=== PATIENT | female | born 1975 | race Caucasian/White ===

== ENCOUNTER → 2018-09-24 | Outpatient (REF) | payer OTHER ==
[2018-09-24 17:08] LABS: ALBUMIN 3.8 GM/DL (3.2-5.2); ALT/SGPT 20 U/L (12-78); BILIRUBIN,TOTAL 0.4 MG/DL (0.2-1.0); BLOOD UREA NITROGEN 10 MG/DL (7-18); CALCIUM LEVEL 8.8 MG/DL (8.5-10.1); CARBON DIOXIDE LEVEL 26 MEQ/L (21-32); CHLORIDE LEVEL 108 MEQ/L (98-107); CHOLESTEROL LEVEL 194 MG/DL (<200); CHOLESTEROL RISK RATIO 2.365 (<5); CREATININE FOR GFR 0.72 MG/DL (0.55-1.30); GLOMERULAR FILTRATION RATE > 60.0 (>58); GLUCOSE, FASTING 91 MG/DL (70-100); HDL CHOLESTEROL 82 MG/DL (>40); LDL CHOLESTEROL 102 MG/DL (<100); NON-HDL-C 112 MG/DL; POTASSIUM SERUM 4.2 MEQ/L (3.5-5.1); SODIUM LEVEL 140 MEQ/L (136-145); TOTAL PROTEIN 6.8 GM/DL (6.4-8.2); TRIGLYCERIDES LEVEL 51 MG/DL (<150)
[2018-09-24 17:14] LABS: HEMOGLOBIN 13.7 g/dl (12.0-15.5); MEAN CORPUSCULAR HEMOGLOBIN 28.5 pg (27.0-33.0); MEAN CORPUSCULAR HGB CONC 32.6 g/dl (32.0-36.5); MEAN CORPUSCULAR VOLUME 87.5 fl (80.0-96.0); PLATELET COUNT, AUTOMATED 250 10^3/uL (150-450); WHITE BLOOD COUNT 6.8 10^3/uL (4.0-10.0)
[2018-09-24 17:16] LABS: TOTAL 25(OH) VITAMIN D 35.8 NG/ML (30.0-100.0); VITAMIN B12 LEVEL 569 PG/ML
[2018-09-24 17:17] LABS: FOLATE 11.1 NG/ML
[2018-09-27 00:06] LABS: Lyme Disease IgG/IgM Antibodie <0.91 ISR (0.00-0.90); Lyme Disease IgM Ab Quantitati <0.80 index (0.00-0.79)
== END ==
LOC: M SFHCCLAY 10:03
PROVIDERS: ATTEND Family Medicine
DX: R23.8 Other skin changes (principal); Z83.3 Family history of diabetes mellitus; Z13.1 Encounter for screening for diabetes mellitus; Z13.220 Encounter for screening for lipoid disorders; Z82.49 Family history of ischemic heart disease and other diseases of the circulatory system; M79.10 Myalgia, unspecified site; K90.0 Celiac disease

== ENCOUNTER 2020-06-25 12:23 | Emergency (ER) | payer OTHER ==
[~2020-06-25] VITALS: Ht 162.6 cm; Wt 80.2 kg
[2020-06-25 13:12] LABS: BASO % 0.4 % (0.0-1.0); EOS % 0.4 % (0.0-3.0); HEMATOCRIT 28.6 % (36.0-47.0); HEMOGLOBIN 8.8 g/dl (12.0-15.5); LYMPH # 0.6 10^3/uL (1.5-5.0); LYMPH % 7.2 % (24.0-44.0); MEAN CORPUSCULAR HEMOGLOBIN 23.5 pg (27.0-33.0); MEAN CORPUSCULAR HGB CONC 30.8 g/dl (32.0-36.5); MEAN CORPUSCULAR VOLUME 76.3 fl (80.0-96.0); MONO # 0.7 10^3/uL (0.0-0.8); MONO % 8.3 % (2.0-8.0); NEUTROPHILS # 6.7 10^3/uL (1.5-8.5); NEUTROPHILS % 83.1 % (36.0-66.0); PLATELET COUNT, AUTOMATED 393 10^3/uL (150-450); RED BLOOD COUNT 3.75 10^6/uL (4.00-5.40)
[2020-06-25] MEDS ORDERED: NS 1,000 ML IV ONE (13:45)
--- NOTE | 2020-06-25 14:20 | REP ---
INDICATION: heavy vaginal bleeding, hx fibroids, endometriosis, cysts COMPARISON: None. TECHNIQUE: Transabdominal pelvic ultrasound followed by transvaginal examination for better evaluation of the endometrium and adnexa. FINDINGS: Bladder is unremarkable and measures 9.5 x 8.6 x 4.7 cm. Enlarged heterogeneous myomatous uterus measures 10.8 x 7.2 x 7.3 cm. 3.7 x 4.2 x 5.0 cm complex partially calcified posterior submucosal/intramural degenerating fibroid, 2.1 x 2.8 x 1.8 cm complex anterior intramural fibroid, and 1.6 x 1.4 x 1.5 cm anterior intramural fibroid identified. The endometrial complex is incompletely evaluated due to mass effect from the above-mentioned myomatous changes but visualized portions measure up to 10 mm. Right ovary measures 4.1 x 2.4 x 2.3 cm with 2.1 x 1.7 x 1.7 cm physiologic cyst. Left ovary measures 3.8 x 1.9 x 2.1 cm and includes 2.1 x 1.4 x 1.7 cm physiologic cyst. Small amount of free fluid in the posterior cul-de-sac is nonspecific. IMPRESSION: Enlarged heterogeneous myomatous uterus. <Electronically signed by Bobo Ybarra > 06/25/20 [id number]
[2020-06-25 15:46] VITALS: BP 140/73
--- NOTE | 2020-06-27 09:56 | ED PDOC ---
Post-Departure Follow-Up radiology report faxed to felix Adams Sarah MD Jun 27, 2020 09:56
== END 2020-06-25 16:19 | disposition home or self-care (01) ==
LOC: M ED 12:23
DX: N94.6 Dysmenorrhea, unspecified (principal); D64.9 Anemia, unspecified; N85.2 Hypertrophy of uterus; J45.909 Unspecified asthma, uncomplicated; K90.0 Celiac disease; M06.9 Rheumatoid arthritis, unspecified; Z88.1 Allergy status to other antibiotic agents; Z88.2 Allergy status to sulfonamides; Z91.018 Allergy to other foods; Z91.030 Bee allergy status

== ENCOUNTER → 2020-06-29 | Outpatient (REF) | payer OTHER ==
[~2020-06-29] MED LIST: ADVA45AE INH; ALBU8.5H INH; CYCL-707 PO; MEDR10TA PO
[2020-06-29 16:09] LABS: HEMATOCRIT 25.9 % (36.0-47.0); HEMOGLOBIN 7.7 g/dl (12.0-15.5); MEAN CORPUSCULAR HEMOGLOBIN 23.6 pg (27.0-33.0); MEAN CORPUSCULAR HGB CONC 29.7 g/dl (32.0-36.5); MEAN CORPUSCULAR VOLUME 79.4 fl (80.0-96.0); PLATELET COUNT, AUTOMATED 540 10^3/uL (150-450); RED BLOOD COUNT 3.26 10^6/uL (4.00-5.40); WHITE BLOOD COUNT 11.7 10^3/uL (4.0-10.0)
== END ==
LOC: M SFHCCLAY 11:48
PROVIDERS: ATTEND Family Medicine
DX: N93.9 Abnormal uterine and vaginal bleeding, unspecified (principal)
CPT/HCPCS: 85027; G0463

== ENCOUNTER 2020-06-30 11:47 | Outpatient (CLI) | payer OTHER ==
[~2020-06-30] VITALS: Ht 162.6 cm; Wt 77.2 kg
[2020-06-30] MEDS ORDERED: IRON SUCROSE 25 MG in NS 25 ML IV ONE (12:00)
[2020-06-30 12:40] VITALS: BP 152/85
[2020-06-30 12:55] VITALS: BP 136/63
[2020-06-30] MEDS ORDERED: IRON SUCROSE 225 MG in NS 225 ML IV ONE (13:00)
[2020-06-30 14:15] VITALS: BP 150/76
[2020-06-30 15:30] VITALS: BP 147/75
[2020-06-30 16:20] VITALS: BP 138/72
[2020-07-02] MEDS ORDERED: CYCL-707 PO (11:01)
[2020-07-02] MEDS ORDERED: MEDR10TA PO (11:01)
[2020-07-02] MEDS ORDERED: ALBU8.5H INH (11:01)
[2020-07-02] MEDS ORDERED: ADVA45AE INH (11:01)
== END 2020-06-30 16:20 | disposition home or self-care (01) ==
LOC: M INFU 11:47
PROVIDERS: ATTEND Family Medicine
DX: D50.0 Iron deficiency anemia secondary to blood loss (chronic) (principal); Z88.1 Allergy status to other antibiotic agents; Z88.2 Allergy status to sulfonamides
CPT/HCPCS: 96365; 96366; J1756

== ENCOUNTER 2020-07-01 16:28 | Outpatient (CLI) | payer OTHER ==
[~2020-07-01] VITALS: Ht 162.6 cm; Wt 77.2 kg
[~2020-07-01 16:28] MED LIST changes: -ADVA45AE INH; -ALBU8.5H INH; -CYCL-707 PO; -MEDR10TA PO; +diphenhydrAMINE 25MG CAP PO SCH
[2020-07-01] MEDS ORDERED: ACETAMINOPHEN 500 MG TAB PO ONE (16:35)
[2020-07-01] MEDS ORDERED: ACETAMINOPHEN SUSP DYE FREE 160 MG/5 ML UDC PO PRN (17:20)
[2020-07-01] MEDS ORDERED: diphenhydrAMINE 50MG/ML VIAL (J1200) IV ONE (17:20)
[2020-07-01 17:35] VITALS: BP 132/60
[2020-07-01 17:55] VITALS: BP 144/65
[2020-07-01 18:35] VITALS: BP 136/72
[2020-07-01 19:15] VITALS: BP 129/63
[2020-07-02] MEDS ORDERED: ADVA45AE INH (11:01)
[2020-07-02] MEDS ORDERED: MEDR10TA PO (11:01)
[2020-07-02] MEDS ORDERED: ALBU8.5H INH (11:01)
[2020-07-02] MEDS ORDERED: CYCL-707 PO (11:01)
== END 2020-07-01 19:20 | disposition home or self-care (01) ==
LOC: M INFU 16:28
PROVIDERS: ATTEND Obstetrics & Gynecology
DX: D64.9 Anemia, unspecified (principal); Z88.2 Allergy status to sulfonamides; Z88.1 Allergy status to other antibiotic agents
CPT/HCPCS: 36430; J1200; P9016

== ENCOUNTER → 2020-07-03 | Outpatient (CLI) | payer OTHER ==
[~2020-07-03] MED LIST changes: +ADVA45AE INH; +ALBU8.5H INH; +CYCL-707 PO; +MEDR10TA PO; -diphenhydrAMINE 25MG CAP PO SCH
[2020-07-03 13:58] LABS: BASO % 0.3 % (0.0-1.0); EOS # 0.1 10^3/uL (0.0-0.5); EOS % 0.9 % (0.0-3.0); HEMATOCRIT 31.8 % (36.0-47.0); HEMOGLOBIN 9.7 g/dl (12.0-15.5); LYMPH # 1.5 10^3/uL (1.5-5.0); LYMPH % 14.5 % (24.0-44.0); MEAN CORPUSCULAR HEMOGLOBIN 25.3 pg (27.0-33.0); MEAN CORPUSCULAR HGB CONC 30.5 g/dl (32.0-36.5); MEAN CORPUSCULAR VOLUME 82.8 fl (80.0-96.0); MONO # 0.4 10^3/uL (0.0-0.8); NEUTROPHILS # 8.4 10^3/uL (1.5-8.5); NEUTROPHILS % 79.4 % (36.0-66.0); PLATELET COUNT, AUTOMATED 479 10^3/uL (150-450); RED BLOOD COUNT 3.84 10^6/uL (4.00-5.40); WHITE BLOOD COUNT 10.6 10^3/uL (4.0-10.0)
== END ==
LOC: M LAB 13:20
PROVIDERS: ATTEND Obstetrics & Gynecology
DX: D64.9 Anemia, unspecified (principal)

== ENCOUNTER 2020-07-07 07:02 | Day surgery (SDC) | payer OTHER ==
[~2020-07-07] VITALS: Ht 162.6 cm; Wt 76.7 kg
[~2020-07-07 07:02] MED LIST changes: +LR 1,000 ML IV ONE; +ceFAZolin SOD 2 GM in IV 1 EA IV ONE
[2020-07-07 07:28] LABS: HEMATOCRIT 34.8 % (36.0-47.0); HEMOGLOBIN 10.7 g/dl (12.0-15.5); MEAN CORPUSCULAR HEMOGLOBIN 25.8 pg (27.0-33.0); MEAN CORPUSCULAR HGB CONC 30.7 g/dl (32.0-36.5); MEAN CORPUSCULAR VOLUME 84.1 fl (80.0-96.0); PLATELET COUNT, AUTOMATED 458 10^3/uL (150-450); RED BLOOD COUNT 4.14 10^6/uL (4.00-5.40); WHITE BLOOD COUNT 8.8 10^3/uL (4.0-10.0)
[2020-07-07 07:55] LABS: ALBUMIN 3.8 GM/DL (3.2-5.2); ALT/SGPT 42 U/L (12-78); BILIRUBIN,TOTAL 0.4 MG/DL (0.2-1.0); BLOOD UREA NITROGEN 9 MG/DL (7-18); CARBON DIOXIDE LEVEL 24 MEQ/L (21-32); CHLORIDE LEVEL 113 MEQ/L (98-107); CREATININE FOR GFR 0.75 MG/DL (0.55-1.30); GLOMERULAR FILTRATION RATE > 60.0 (>58); GLUCOSE, FASTING 93 MG/DL (70-100); POTASSIUM SERUM 3.9 MEQ/L (3.5-5.1); SODIUM LEVEL 142 MEQ/L (136-145); TOTAL PROTEIN 7.6 GM/DL (6.4-8.2)
[2020-07-07] MEDS ORDERED: SCOPOLAMINE 1MG TRANSDERMAL PATCH TOP SCH (09:15)
[2020-07-07] MEDS ORDERED: ACETAMINOPHEN *IV* 1,000 MG IV ONE ×2 (09:15)
[2020-07-07] MEDS ORDERED: fentaNYL 250 MCG/5 ML INJECTION (J3010) As Ordered ONE (09:27)
[2020-07-07] MEDS ORDERED: propofoL 200 MG/20 ML VIAL As Ordered ONE ×2 (09:28→12:24)
[2020-07-07] MEDS ORDERED: MIDAZOLAM INJ 2MG/2ML VIAL (J2250 PER 1MG) As Ordered ONE (09:28)
[2020-07-07] MEDS ORDERED: ACETAMINOPHEN 1000MG 100ML IV BTL (OFIRMEV) (J0131 PER 10MG) As Ordered ONE (09:30)
[2020-07-07] MEDS ORDERED: ROCURONIUM BROMIDE 50 MG/5 ML VIAL As Ordered ONE ×2 (09:30→10:49)
[2020-07-07] MEDS ORDERED: LIDOCAINE 2% 100MG/5ML SDV (FOR ANES.) As Ordered ONE (09:30)
[2020-07-07] MEDS ORDERED: ONDANSETRON 4MG/2ML VIAL As Ordered ONE (09:31)
[2020-07-07] MEDS ORDERED: KETOROLAC 60MG 2ML VIAL As Ordered ONE (09:31)
[2020-07-07] MEDS ORDERED: dexameTHASONE 4 MG/ML 1ML VIAL (J1100 PER 1MG) As Ordered ONE (09:31)
[2020-07-07] MEDS ORDERED: LIDOCAINE W/EPINEPHRINE 1% 20ML VIAL As Ordered ONE (09:57)
[2020-07-07] MEDS ORDERED: VASOPRESSIN INJ 20 UNITS/ML VIAL As Ordered ONE (09:57)
[2020-07-07] MEDS ORDERED: SUGAMMADEX SODIUM 500 MG/5 ML VIAL (BRIDION) As Ordered ONE (11:39)
[2020-07-07] MEDS ORDERED: MORPHINE 2 MG/ML 1ML VIAL (J2270) IV PRN (13:10)
[2020-07-07] MEDS ORDERED: oxyCODONE 5MG TAB PO PRN (13:10)
[2020-07-07] MEDS ORDERED: LR 1,000 ML IV SCH (13:10)
[2020-07-07] MEDS ORDERED: ONDANSETRON 4MG/2ML VIAL IV PRN (13:10)
[2020-07-07] MEDS: fentaNYL 100 MCG/2 ML INJECTION (J3010) IV PRN ×4 (13:16→13:53)
[2020-07-07] MEDS ORDERED: MORPHINE 4 MG/ML 1ML VIAL/SYRINGE (J2270) IV PRN (14:20)
[2020-07-07 14:41] LABS: HEMATOCRIT 30.7 % (36.0-47.0); HEMOGLOBIN 9.3 g/dl (12.0-15.5); MEAN CORPUSCULAR HEMOGLOBIN 25.1 pg (27.0-33.0); MEAN CORPUSCULAR HGB CONC 30.3 g/dl (32.0-36.5); PLATELET COUNT, AUTOMATED 385 10^3/uL (150-450); WHITE BLOOD COUNT 15.1 10^3/uL (4.0-10.0)
[2020-07-07] MEDS ORDERED: METOCLOPRAMIDE INJ 10MG/2ML VIAL (J2765 PER 1) IV PRN (15:10)
[2020-07-07 15:45] VITALS: BP 108/60
[2020-07-07 16:15] VITALS: BP 127/69
--- NOTE | 2020-07-07 16:35 | ROOPDOC ---
[facility] Report Of Operation Report of Operation DATE OF PROCEDURE: 07/07/20 PREPROCEDURE DIAGNOSES: symptomatic fibroid uterus, symptomatic anemia POSTPROCEDURE DIAGNOSES: same + bilateral labial and first degree perineal lac erations PROCEDURE: total vaginal hysterectomy, bilateral salpingectmoy, modified McCalls culdoplasty, cystoscopy, repair of bilateral labial and first degree perineal lacerations SURGEON: Lionel Sr DO [employer]ING [employer]ING MACHINE OPERATOR: Juan Manuel Campbell MD ANESTHESIA: general ESTIMATED BLOOD LOSS: Approximately 200 mL. COMPLICATIONS: none REMARKS: delivery of the uterus resulted in first degree perineal and bilateral labial lacerations PROCEDURE NOTES: The risks, benefits, and alternatives of the procedure were discussed and written consent was obtained. The patient was given 2g of ancef, 1000mg IV tylenol, and a scopolamine patch pre-op. She was taken to the OR and placed under general anesthesia. She was positioned in lithotomy with the candy canes with her arms out. The perineum was prepped and draped in a sterile fashion and a valentin was placed in the bladder. A final time out was performed. The weighted speculum was placed and the cervix was grasped with the double tooth tenaculum. The cervicovaginal junction was injected with 1% lidocaine with epinephrine circumferentially. It was then incised with bovie cut. The posterior lip of the incision was elevated and curved may scissors were used to incise the posterior peritoneum. Intra-abdominal entry was confirmed and a retractor was placed. A posterior fibroid was noted and there were no palpable adhesions. The uterosacral ligaments were then grasped with the beatriz clamps, cut, and sutured with 0-vicryl. The anterior peritoneal reflection was then identified and incised. Intra-abdominal entry was confirmed and a retractor was placed. A small anterior fibroid was palpated and there were no palpable adhesions. The ligasure impat was then used to cauterize the cut the bilateral uterine arteries and broad ligaments. Due to the posterior fibroid the round ligaments and fallopian tubes could not be visualized. The uterus was then rotated and the fundus brought to the introitus. The ligaments and tubes were then cauterized and cut with the ligasure impact. The uterus was delivered vaginally, a first degree perineal laceration and bilateral labial lacerations were noted. The bilateral fallopian tubes were grasped with the anabel clamps and the mesosalpinx transected with the ligasure impact. The specimens were sent for pathology. The surgical sites were inspected and remained hemostatic. The ovaries appeared normal. The posterior lip of the vaginal cuff was then grasped and a modified McCalls culdoplasty was performed with 0-PDS ensuring to grasp the bilateral uterosacral ligaments. The valentin was removed and cystoscopy performed. There was no visible bladder trauma and the bilateral ureter jets were visualized to be brisk. The bladder was drained. The vaginal mucosa was then closed with 0-vicryl in a running fashion. The surgical sites were inspected to be hemostatic. The bilateral labial lacerations were repaired with 4-0 monocryl running. The first degree perineal laceration was repaired with 0-vicryl in the usual fashion. There were no complications. The sponge, lap, and needle counts were correct x2. The patient was transferred to recovery in stable condition. LIONEL SR DO July 07, 2020 16:35
--- NOTE | 2020-07-07 16:39 | IPNPDOC ---
Text Note Date of Service The patient was seen on 07/07/20. NOTE Night of surgery note: The patient has tolerated clears, ambulated, and urinated a "small amount" since her surgery. She has no abdominal pain, she does note tolerable pain of her perineal laceration. She endorsed some nausea, but no vomiting. She denied cp/sob, f/c, heavy vb, urinary sx. Her VS are normal. She denied si/sx of anemia. On exam her abdomen is soft and non-tender. The bleeding on her pad is scant. Her pre-op hct was 10 and post-op it was 9. If the patient can tolerate solids and have a full void she can go home if she desires. VS,Fishbone, I+O VS, Fishbone, I+O Laboratory Tests 07/07/20 07:14 07/07/20 14:30 Vital Signs Date Time Temp Pulse Resp B/P (MAP) Pulse Ox O2 Delivery O2 Flow Rate FiO2 07/07/20 15:45 98.7 78 18 108/60 (76) 99 Room Air LIONEL SR DO July 07, 2020 16:39
[2020-07-07 17:15] VITALS: BP 130/66
[2020-07-07 18:15] VITALS: BP 127/69
[2020-07-07] MEDS ORDERED: KETOROLAC 30 MG/ML 1ML VIAL IV SCH (19:00)
== END 2020-07-07 18:56 | disposition home or self-care (01) ==
LOC: M SDC 07:02 → M OBS 15:45 → M SDC 18:56
PROVIDERS: ATTEND Obstetrics & Gynecology
DX: N85.8 Other specified noninflammatory disorders of uterus (principal); D25.0 Submucous leiomyoma of uterus; D50.0 Iron deficiency anemia secondary to blood loss (chronic); N93.8 Other specified abnormal uterine and vaginal bleeding; N99.71 Accidental puncture and laceration of a genitourinary system organ or structure during a genitourinary system procedure; R11.0 Nausea; M06.9 Rheumatoid arthritis, unspecified; K90.0 Celiac disease; J45.909 Unspecified asthma, uncomplicated; M26.609 Unspecified temporomandibular joint disorder, unspecified side; Z88.2 Allergy status to sulfonamides; Z88.1 Allergy status to other antibiotic agents; Z91.030 Bee allergy status; Z91.018 Allergy to other foods; Z91.013 Allergy to seafood; Z79.899 Other long term (current) drug therapy; Z79.52 Long term (current) use of systemic steroids
CPT/HCPCS: 36415; 58262; 80053; 81025; 85027; 86850; 86900; 86901; 88307; J0131; J0690; J1100; J1885; J2250; J2405; J2765; J3010

== ENCOUNTER → 2020-07-28 | Outpatient (REF) | payer OTHER ==
[~2020-07-28] MED LIST changes: +ACET-683 PO; -LR 1,000 ML IV ONE; +MOTR200T44 PO; -ceFAZolin SOD 2 GM in IV 1 EA IV ONE
== END ==
LOC: M SFHCCLAY 10:02
PROVIDERS: ATTEND Physician Assistant
DX: R30.0 Dysuria (principal)

== ENCOUNTER → 2020-07-30 | Outpatient (CLI) | payer OTHER ==
[~2020-07-30] MED LIST changes: +GASTROGRAFIN SOLUTION 30ML (Q9963) As Ordered ONE; +ISOVUE-370 76% 100ML VIAL As Ordered ONE
--- NOTE | 2020-07-30 13:58 | REP ---
INDICATION: PELVIC ABSCESS. Patient is status post fluid collection after vaginal hysterectomy. COMPARISON: Comparison pelvic CT study is from July 19, 2020.. TECHNIQUE: Helical scanning is acquired following the intravenous injection of 100 mL of Isovue 370. Oral contrast was also administered. 3 mm axial images re-formatted. Coronal and sagittal MPR images are provided. FINDINGS: There is a small left ovarian cyst 3.6 x 3.3 by 3.5 cm in diameter. This appears to be a new finding. The previously noted cul-de-sac fluid collection has resolved. There is a small quantity of air in the upper vagina. No abscess is visible today. No right adnexal abnormality is seen. Normal appendix is noted in the right pelvis. Small and large bowel loops are unremarkable as visualized. IMPRESSION: The previously noted cul-de-sac/vaginal fornix fluid collection has resolved. No evidence of abscess. There is a 3.6 cm left ovarian cyst. Otherwise negative. <Electronically signed by Angel Ventura > 07/30/20 [id number]
== END ==
LOC: M RAD 11:37
PROVIDERS: ATTEND Obstetrics & Gynecology
DX: N94.9 Unspecified condition associated with female genital organs and menstrual cycle (principal); Z90.710 Acquired absence of both cervix and uterus; N83.202 Unspecified ovarian cyst, left side
CPT/HCPCS: 72193; Q9963; Q9967

== ENCOUNTER → 2020-10-08 | Outpatient (REF) | payer OTHER ==
[~2020-10-08] MED LIST changes: -GASTROGRAFIN SOLUTION 30ML (Q9963) As Ordered ONE; -ISOVUE-370 76% 100ML VIAL As Ordered ONE
[2020-10-08 12:57] LABS: HEMOGLOBIN A1c 5.1 %
[2020-10-10 20:07] LABS: Lyme Disease IgG Ab 18 kDa Ban Absent (.); Lyme Disease IgG Ab 23 kDa Ban Present (.); Lyme Disease IgG Ab 28 kDa Ban Absent (.); Lyme Disease IgG Ab 30 kDa Ban Absent (.); Lyme Disease IgG Ab 39 kDa Ban Absent (.); Lyme Disease IgG Ab 41 kDa Ban Absent (.); Lyme Disease IgG Ab 45 kDa Ban Absent (.); Lyme Disease IgG Ab 58 kDa Ban Absent (.); Lyme Disease IgG Ab 66 kDa Ban Absent (.); Lyme Disease IgG Ab 93 kDa Ban Absent (.); Lyme Disease IgG West Blot Int Negative (.); Lyme Disease IgG/IgM Antibodie <0.91 ISR (0.00-0.90); Lyme Disease IgM Ab 23 kDa Ban Absent (.); Lyme Disease IgM Ab 39 kDa Ban Absent (.); Lyme Disease IgM Ab 41 kDa Ban Absent (.); Lyme Disease IgM Ab Quantitati 1.14 index (0.00-0.79); Lyme Disease IgM West Blot Int Negative (.)
== END ==
LOC: M SFHCCLAY 09:06
PROVIDERS: ATTEND Family Medicine
DX: M79.10 Myalgia, unspecified site (principal); Z13.1 Encounter for screening for diabetes mellitus
CPT/HCPCS: 83036; 86617; G0463

== ENCOUNTER → 2020-11-17 | Outpatient (CLI) | payer OTHER ==
[~2020-11-17] MED LIST changes: +BENA25TA5 PO; +D31000TA2 PO; +PROHANCE 279.3MG/ML 15ML VIAL As Ordered ONE; +QUIN324C2 PO; +VITA-158 PO; +ZINC1TAB2 PO
--- NOTE | 2020-11-17 17:18 | REP ---
INDICATION: SCREENING, FAMILY HISTORY. COMPARISON: Mammogram 08/08/2018. TECHNIQUE: Three [place] MRI imaging was performed with a dedicated breast coil. Axial, coronal, and sagittal T1 and T2 weighted scans were obtained with and without fat saturation in the usual fashion. The study includes dynamically acquired post gadolinium-enhanced imaging with image subtraction. Maximum intensity projection and multi planar reformation imaging is included as well. This study is interpreted with the aid of [employer], an FDA approved computer aided detection (CAD) software program, on a dedicated breast MRI workstation. The gadolinium enhancement dose is 15 mL of intravenous ProHance. FINDINGS: Moderate symmetrical fibroglandular tissue is present. There is no axillary adenopathy. There are multiple subcentimeter cysts in both breasts, right greater than left. There is mild diffuse background parenchymal enhancement bilaterally. There is no suspicious enhancing mass or morphologic abnormality. There is a 1 cm cyst in the anterior right lobe of the liver superiorly. IMPRESSION: BI-RADS category 2, benign bilateral breast MRI. Multiple subcentimeter cysts are present. There is no suspicious enhancing mass or morphologic abnormality. <Electronically signed by Chao Sanz > 11/17/20 [id number]
== END ==
LOC: M RAD 15:03
PROVIDERS: ATTEND Obstetrics & Gynecology
DX: Z12.31 Encounter for screening mammogram for malignant neoplasm of breast (principal); Z80.3 Family history of malignant neoplasm of breast
CPT/HCPCS: A9576; C8908

== ENCOUNTER 2020-11-26 12:07 | Outpatient (CLI) | payer OTHER ==
[~2020-11-26] VITALS: Ht 162.6 cm; Wt 77.1 kg
[~2020-11-26 12:07] MED LIST changes: +ALBUTEROL 90 MCG/ACT 8GM HFA INHALER INH PRN; +ALBUTEROL SULFATE 2.5 MG/0.5 ML INH NEB SOLN INH PRN; -BENA25TA5 PO; -D31000TA2 PO; +EPINEPHrine INJ 1 MG/ML 1ML AMP IM PRN; +NS 1,000 ML IV SCH; -PROHANCE 279.3MG/ML 15ML VIAL As Ordered ONE; -QUIN324C2 PO; -VITA-158 PO; -ZINC1TAB2 PO; +methylPREDNISolone 125MG 2ML VIAL IV PRN
[2020-11-26 12:53] VITALS: BP 133/93
[2020-11-26] MEDS ORDERED: CASIRIVIMAB/IMDEVIMAB 1,200 MG in NS 250 ML IV ONE (14:00)
[2020-11-26 14:40] VITALS: BP 121/65
[2020-11-26 15:26] VITALS: BP 128/67
[2020-11-26 16:31] VITALS: BP 143/67
[2020-11-26] MEDS: diphenhydrAMINE 50MG/ML VIAL (J1200) IV PRN ×2 (16:52→17:43)
[2020-11-26 17:05] VITALS: BP 128/78
[2020-11-26 17:58] VITALS: BP 142/67
--- NOTE | 2020-11-26 18:12 | CR.PDOC ---
General Date of Consultation: Nov 26, 2020 Referring Provider: KRISTEN GIRON DO Attending Physician: BRANDT HERNANDEZ MD Consultation REASON FOR CONSULTATION/CHIEF COMPLAINT: Rash after MAB infusion HISTORY OF PRESENT ILLNESS: 45 yo W with a history of asthma, celiac and vocal cord dysfunction who has covid-19 infection that was recently diagnosed with associated generalized weakness who was admitted for outpatient MABs to reduce the risk of progression to severe disease given her pulmonary history who shortly after infusion was completed as the nursing was taking meds off the patient noted redness in her palms to almost purplish that showly travelled up her arms and mildy to her anterior chest. She had no shortness of breath, chest pain, difficulty breathing and she remained normotensive, afebrile and was saturating well on room air. Given the noted palmar erythema she was given benadryl x 1 per protocol and reported throat "burning" and was given solumedrol 125 x 1 with good effect and the erythema started resolving. ALLERGIES: Please see below. HOME MEDICATIONS: Please see below. PAST MEDICAL HISTORY: ASTHMA CELIAC PARALYZED VOCAL CORD Surgical History HYSTERECTOMY SOCIAL HISTORY: No alcohol No illicit drug use No smoking REVIEW OF SYSTEMS: CONSTITUTIONAL: Feeling generally unwell, no fevers reported HEENT: No headache, vision changes no congestion, no rhinorrhea CARDIOVASCULAR: No chest pain, palpitations, dyspnea on exertion or noted peripheral swelling RESPIRATORY: No Dyspnea, slight dry cough, no wheezing, stridor, difficulty breathing or requirement for oxygen on checking GENITOURINARY: No dysuria or hematuria. No vaginal discharge MUSCULOSKELETAL: Full strength on use but just feels weak GASTROINTESTINAL: No abdominal pain, nausea, emesis, melena or hematochezia SKIN: Has now resolving hand erythema, non-pruritic, blanching, no open lesion, clear MMM NEUROLOGICAL: No asymmetrical weakness PSYCHIATRIC: AOx3 PHYSICAL EXAMINATION: VITAL SIGNS: Please see below. GENERAL APPEARANCE: NAD, comfortable appearing, conversational, on room air HEENT: NCAT, EOMI, MMM, clear posterior oropharynx RESPIRATORY: CTAB, no stridor, no wheezing, no crackles, no hypoxemia on continuous pulse ox CARDIOVASCULAR: RRR, no m/r/g ABDOMEN: Normoactive bowel sounds, soft, NTND EXTREMITIES: WWP, no LE edema, 2+ DP pulses NEUROLOGICAL: CN3-12 in tact, full 5/5 strength and tone in all extremities PSYCHIATRIC: Aox3 SKIN: Resolving palmar erythema, bilateral arm and anterior chest blanchable flushing. LABORATORY DATA: Please see below. ASSESSMENT/PLAN: 45 yo W with a history of asthma, celiac and vocal cord dysfunction who has covid-19 infection that was recently diagnosed with associated generalized weakness who was admitted for outpatient MABs to reduce the risk of progression to severe disease given her pulmonary history who shortly after infusion was noted to have palmar erythema and noted spreading arm and anterior flushing whom I am now admitting for MAB infusion reaction observation with improving symptoms, with plan to discharge her home tomorrow morning. Covid-19 infection: -no hypoxia or hypoxemia with baseline pulm exam -I advised her to resume her advair that she had stopped, when she gets home -PRN albuterol -PRN acetaminophen for fevers -tomorrow AM CBC and BMP -q4H vitals and continuous pulse ox -s/p MAB infusion Asthma: -q4HP albuterol -to resume advair and PRN albuterol when she gets home tomorrow DVT ppx: lovenox Dispo: home in the morning Vital Signs/I&O Vital Signs Date Time Temp Pulse Resp B/P (MAP) Pulse Ox O2 Delivery O2 Flow Rate FiO2 11/26/20 17:05 99.1 77 16 128/78 (95) 99 Room Air Allergies Coded Allergies: Sulfa (Sulfonamide Antibiotics) (Verified Allergy, Intermediate, hives and muscle issues, 07/19/20) patient says sulpher biaxin severe hives requires iv benedryl, levequin muscle issue bee venom protein (honey bee) (Verified Allergy, Unknown, 06/25/20) clarithromycin (Verified Allergy, Unknown, 06/25/20) gluten (Verified Allergy, Unknown, 06/25/20) levofloxacin (Verified Allergy, Unknown, 06/25/20) Home Medications Scheduled Fluticasone Propion/Salmeterol (Advair Hfa 45-21 Mcg Inhaler) 12 Gm Hfa.aer.ad, 1 INH INH DAILY, (Reported) Scheduled PRN Acetaminophen (Acetaminophen) 500 Mg Tablet, 1,000 MG PO Q6H PRN for BACK PAIN, (Reported) Albuterol Sulfate (Albuterol Sulfate Hfa) 8.5 Gm Hfa.aer.ad, 2 PUFF INH Q6H PRN for SHORTNESS OF BREATH, (Reported) Ibuprofen (Motrin Ib) 200 Mg Tablet, 400 MG PO Q6H PRN for PAIN, (Reported) BRANDT HERNANDEZ MD Nov 26, 2020 17:33
[2020-11-26] MEDS ORDERED: VITA-158 PO (19:58)
[2020-11-26] MEDS ORDERED: ZINC1TAB2 PO (19:58)
[2020-11-26] MEDS ORDERED: QUIN324C2 PO (19:58)
[2020-11-26] MEDS ORDERED: D31000TA2 PO (19:58)
[2020-11-27] MEDS ORDERED: BENA25TA5 PO (09:45)
== END 2020-11-26 18:24 | disposition other institution (70) ==
LOC: M OPCLI4PR 12:07
PROVIDERS: ATTEND Family Medicine
DX: U07.1 COVID-19 (principal); Z88.2 Allergy status to sulfonamides; Z88.1 Allergy status to other antibiotic agents; Z88.6 Allergy status to analgesic agent; Z91.030 Bee allergy status

== ENCOUNTER 2020-11-26 18:11 | Observation (INO) | payer OTHER, SELFPAY ==
[~2020-11-26] VITALS: Ht 162.6 cm; Wt 75.3 kg
[~2020-11-26 18:11] MED LIST changes: -ALBUTEROL 90 MCG/ACT 8GM HFA INHALER INH PRN; -ALBUTEROL SULFATE 2.5 MG/0.5 ML INH NEB SOLN INH PRN; -EPINEPHrine INJ 1 MG/ML 1ML AMP IM PRN; -NS 1,000 ML IV SCH; -methylPREDNISolone 125MG 2ML VIAL IV PRN
[2020-11-26] MEDS ORDERED: ACETAMINOPHEN TAB 650MG DOSE (2X325MG) PO PRN (19:10)
[2020-11-26] MEDS ORDERED: ALBUTEROL 90 MCG/ACT 8GM HFA INHALER INH PRN (19:10)
--- NOTE | 2020-11-26 19:16 | HPEPDOC ---
[facility] Medical History & Physical Date of Admission Nov 26, 2020 Date of Service: Nov 26, 2020 Attending Physician: BRANDT HERNANDEZ MD History and Physical CHIEF COMPLAINT: Erythematous flushing and confluent rash after MAB infusion HISTORY OF PRESENT ILLNESS: 45 yo W with a history of asthma, celiac and vocal cord dysfunction who has covid-19 infection that was recently diagnosed with associated generalized weakness who was admitted for outpatient MABs to reduce the risk of progression to severe disease given her pulmonary history who shortly after infusion was completed as the nursing was taking meds off the patient noted redness in her palms to almost purplish that showly travelled up her arms and mildy to her anterior chest. She had no shortness of breath, chest pain, difficulty breathing and she remained normotensive, afebrile and was saturating well on room air. Given the noted palmar erythema she was given benadryl x 1 per protocol and reported throat "burning" and was given solumedrol 125 x 1 with good effect and the erythema started resolving. ALLERGIES: Please see below. HOME MEDICATIONS: Please see below. PAST MEDICAL HISTORY: ASTHMA CELIAC PARALYZED VOCAL CORD Surgical History HYSTERECTOMY SOCIAL HISTORY: No alcohol No illicit drug use No smoking REVIEW OF SYSTEMS: CONSTITUTIONAL: Feeling generally unwell, no fevers reported HEENT: No headache, vision changes no congestion, no rhinorrhea CARDIOVASCULAR: No chest pain, palpitations, dyspnea on exertion or noted peripheral swelling RESPIRATORY: No Dyspnea, slight dry cough, no wheezing, stridor, difficulty breathing or requirement for oxygen on checking GENITOURINARY: No dysuria or hematuria. No vaginal discharge MUSCULOSKELETAL: Full strength on use but just feels weak GASTROINTESTINAL: No abdominal pain, nausea, emesis, melena or hematochezia SKIN: Has now resolving hand erythema, non-pruritic, blanching, no open lesion, clear MMM NEUROLOGICAL: No asymmetrical weakness PSYCHIATRIC: AOx3 PHYSICAL EXAMINATION: VITAL SIGNS: Please see below. GENERAL APPEARANCE: NAD, comfortable appearing, conversational, on room air HEENT: NCAT, EOMI, MMM, clear posterior oropharynx RESPIRATORY: CTAB, no stridor, no wheezing, no crackles, no hypoxemia on continuous pulse ox CARDIOVASCULAR: RRR, no m/r/g ABDOMEN: Normoactive bowel sounds, soft, NTND EXTREMITIES: WWP, no LE edema, 2+ DP pulses NEUROLOGICAL: CN3-12 in tact, full 5/5 strength and tone in all extremities PSYCHIATRIC: Aox3 SKIN: Resolving palmar erythema, bilateral arm and anterior chest blanchable flushing. LABORATORY DATA: Please see below. ASSESSMENT/PLAN: 45 yo W with a history of asthma, celiac and vocal cord dysfunction who has covid-19 infection that was recently diagnosed with associated generalized weakness who was admitted for outpatient MABs to reduce the risk of progression to severe disease given her pulmonary history who shortly after infusion was noted to have palmar erythema and noted spreading arm and anterior flushing whom I am now admitting for MAB infusion reaction observation with improving symptoms , with plan to discharge her home tomorrow morning. Covid-19 infection: -no hypoxia or hypoxemia with baseline pulm exam -I advised her to resume her advair that she had stopped, when she gets home -PRN albuterol -PRN acetaminophen for fevers -tomorrow AM CBC and BMP -q4H vitals and continuous pulse ox -s/p MAB infusion Asthma: -q4HP albuterol -to resume advair and PRN albuterol when she gets home tomorrow DVT ppx: lovenox Dispo: home in the morning Home Medications Scheduled Fluticasone Propion/Salmeterol (Advair Hfa 45-21 Mcg Inhaler) 12 Gm Hfa.aer.ad, 1 INH INH DAILY Scheduled PRN Acetaminophen (Acetaminophen) 500 Mg Tablet, 1,000 MG PO Q6H PRN for BACK PAIN Albuterol Sulfate (Albuterol Sulfate Hfa) 8.5 Gm Hfa.aer.ad, 2 PUFF INH Q6H PRN for SHORTNESS OF BREATH Ibuprofen (Motrin Ib) 200 Mg Tablet, 400 MG PO Q6H PRN for PAIN Allergies Coded Allergies: Sulfa (Sulfonamide Antibiotics) (Verified Allergy, Intermediate, hives and muscle issues, 07/19/20) patient says sulpher biaxin severe hives requires iv benedryl, levequin muscle issue bee venom protein (honey bee) (Verified Allergy, Unknown, 06/25/20) clarithromycin (Verified Allergy, Unknown, 06/25/20) gluten (Verified Allergy, Unknown, 06/25/20) levofloxacin (Verified Allergy, Unknown, 06/25/20) A-FIB/CHADSVASC A-FIB History Current/History of A-Fib/PAF?: No Current PO Anticoag Therapy: No Age/Risk Factor Scoring CHADSVASC: CHADSVASC Response (Comments) Value Age Risk Factor Age < 65 years old 0 Gender Risk Factor Female 1 Hx of CHF No 0 Hx of HTN No 0 Hx of Stroke/TIA/or VTE No 0 Hx of Diabetes No 0 Hx of Vascular Disease No 0 Total 1 Treatment Treatment ordered: NONE Reason Anticoagulant not given: Not indicated/[id number] BRANDT HERNANDEZ MD Nov 26, 2020 19:16
[2020-11-26] MEDS ORDERED: VITA-158 PO (19:58)
[2020-11-26] MEDS ORDERED: ZINC1TAB2 PO (19:58)
[2020-11-26] MEDS ORDERED: QUIN324C2 PO (19:58)
[2020-11-26] MEDS ORDERED: D31000TA2 PO (19:58)
[2020-11-26] MEDS ORDERED: HOME MED LIST COMPLETE! XX SCH (20:00)
[2020-11-26 20:05] VITALS: BP 136/74
[2020-11-26 20:26] VITALS: BP 136/72
[2020-11-26 20:30] VITALS: O2SAT 98
[2020-11-26] MEDS ORDERED: diphenhydrAMINE 50MG/ML VIAL (J1200) IV PRN (22:40)
--- NOTE | 2020-11-26 22:40 | IPNPDOC ---
Text Note Date of Service Significant event NOTE Patient with concern for reaction per MAB see H&P note. She reports tonight some swelling under her eyes. Thankfully, patient denies shortness of breath, throat swelling or worsening rash. Will opt for Benadryl and will give dose of Solu-Medrol; consider continuation pending patient response. WCTM. VS,Fishbone, I+O VS, Fishbone, I+O Vital Signs Date Time Temp Pulse Resp B/P (MAP) Pulse Ox O2 Delivery O2 Flow Rate FiO2 11/26/20 20:26 99.3 89 17 136/72 (93) 98 Room Air EROS COPELAND NP Nov 26, 2020 22:40
[2020-11-26] MEDS: methylPREDNISolone 125MG 2ML VIAL IV SCH (23:59)
[2020-11-27] VITALS (8 sets, daily range): BP systolic 115–138; BP diastolic 69–76; O2SAT 96–99
[2020-11-27 07:19] LABS: HEMATOCRIT 42.5 % (36.0-47.0); HEMOGLOBIN 13.7 g/dl (12.0-15.5); LYMPH # 0.5 10^3/uL (1.5-5.0); LYMPH % 7.7 % (24.0-44.0); MEAN CORPUSCULAR HEMOGLOBIN 25.4 pg (27.0-33.0); MEAN CORPUSCULAR HGB CONC 32.2 g/dl (32.0-36.5); MEAN CORPUSCULAR VOLUME 78.7 fl (80.0-96.0); MONO # 0.1 10^3/uL (0.0-0.8); MONO % 1.7 % (2.0-8.0); NEUTROPHILS # 5.3 10^3/uL (1.5-8.5); NEUTROPHILS % 90.3 % (36.0-66.0); PLATELET COUNT, AUTOMATED 307 10^3/uL (150-450); WHITE BLOOD COUNT 5.9 10^3/uL (4.0-10.0)
[2020-11-27 07:32] LABS: BLOOD UREA NITROGEN 8 MG/DL (7-18); CALCIUM LEVEL 9.3 MG/DL (8.5-10.1); CARBON DIOXIDE LEVEL 24 MEQ/L (21-32); CHLORIDE LEVEL 109 MEQ/L (98-107); CREATININE FOR GFR 0.64 MG/DL (0.55-1.30); GLOMERULAR FILTRATION RATE > 60.0 (>58); GLUCOSE, FASTING 110 MG/DL (70-100); MAGNESIUM LEVEL 2.1 MG/DL (1.8-2.4); POTASSIUM SERUM 3.9 MEQ/L (3.5-5.1); SODIUM LEVEL 141 MEQ/L (136-145)
--- NOTE | 2020-11-27 08:21 | DS.PDOC ---
Discharge Summary General Date of Admission Nov 26, 2020 at 19:38 Date of Discharge 11/27/2020 Attending Physician: BRANDT HERNANDEZ MD Discharge Summary PROCEDURES PERFORMED DURING STAY: None ADMITTING DIAGNOSES: Adverse reaction from covid-19 MAB infusion DISCHARGE DIAGNOSES: Adverse reaction from covid-19 MAB infusion Covid-19 infection ASTHMA CELIAC COMPLICATIONS/CHIEF COMPLAINT: Covid Positive. HISTORY OF PRESENT ILLNESS: 45 yo W with a history of asthma, celiac and vocal cord dysfunction who has covid-19 infection that was recently diagnosed with associated generalized weakness who was admitted for outpatient MABs to reduce the risk of progression to severe disease given her pulmonary history who shortly after infusion was completed as the nursing was taking meds off the patient noted redness in her palms to almost purplish that slowly travelled up her arms and mildy to her anterior chest. She had no shortness of breath, chest pain, difficulty breathing and she remained normotensive, afebrile and was saturating well on room air. Given the noted palmar erythema she was given benadryl x 1 per protocol and reported throat "burning" and was given solumedrol 125 x 1 with good effect and the erythema started resolving. HOSPITAL COURSE: Given the "rash" that was more consistent with flushing on examination that had not resolved completely by the time I examined her, I decided to admit her for observation overnight, during which she received extra doses of solumedrol 60mg that were scheduled for Q12H and received 1 extra dose per the overnight team. This morning she is doing well, all flushing has resolved, no rash, no SOB, no wheezing, no chest pain and she is normotensive and afebrile. I am not discharging her home with close PCP follow up. She is to continue taking her Advair as prescribed and using her albuterol PRN as prescribed and to continue self isolation and masking with good hygiene practices while recovering from covid-19. DISCHARGE MEDICATIONS: Please see below. ALLERGIES: Please see below. PHYSICAL EXAMINATION ON DISCHARGE: VITAL SIGNS: Please see below. GENERAL APPEARANCE: NAD, comfortable appearing, conversational, on room air HEENT: NCAT, EOMI, MMM, clear posterior oropharynx RESPIRATORY: CTAB, no stridor, no wheezing, no crackles CARDIOVASCULAR: RRR, no m/r/g ABDOMEN: Normoactive bowel sounds, soft, NTND EXTREMITIES: WWP, no LE edema, 2+ DP pulses NEUROLOGICAL: CN3-12 in tact, full 5/5 strength and tone in all extremities PSYCHIATRIC: Aox3 SKIN: No flushing, no rash, no lesions LABORATORY DATA: Please see below. IMAGING: None PROGNOSIS: Good ACTIVITY: As tolerated DIET: Regular DISCHARGE PLAN: Home with close PCP follow up within 7d DISPOSITION: home DISCHARGE INSTRUCTIONS: Home with close PCP follow up within 7d ITEMS TO FOLLOWUP ON ON OUTPATIENT: Covid-19 infection resolution DISCHARGE CONDITION: Stable TIME SPENT ON DISCHARGE: 30 minutes. Vital Signs/I&Os Vital Signs Date Time Temp Pulse Resp B/P (MAP) Pulse Ox O2 Delivery O2 Flow Rate FiO2 11/27/20 06:22 99.2 88 17 120/69 (86) 97 Room Air I&O- Last 24 Hours up to 6 AM 11/27/20 06:00 Intake Total 360 ml Balance 360 ml Laboratory Data Labs 24H Laboratory Tests 2 11/27/20 06:33: Immature Granulocyte % (Auto) 0.3, Neutrophils (%) (Auto) 90.3H, Lymphocytes (%) (Auto) 7.7L, Monocytes (%) (Auto) 1.7L, Eosinophils (%) (Auto) 0.0, Basophils (%) (Auto) 0.0, Neutrophils # (Auto) 5.3, Lymphocytes # (Auto) 0.5L, Monocytes # (Auto) 0.1, Eosinophils # (Auto) 0.0, Basophils # (Auto) 0.0, Nucleated Red Blood Cells % (auto) 0.0, Anion Gap 8, Glomerular Filtration Rate > 60.0, Calcium Level 9.3, Magnesium Level 2.1 CBC/BMP Laboratory Tests 11/27/20 06:33 Discharge Medications Scheduled Ascorbic Acid (Vitamin C) 500 Mg Tablet, 500 MG PO DAILY, (Reported) Cholecalciferol (Vitamin D3) (Vitamin D3) 1,000 Unit Tablet, 1,000 UNITS PO DAILY, (Reported) Fluticasone Propion/Salmeterol (Advair Hfa 45-21 Mcg Inhaler) 12 Gm Hfa.aer.ad, 1 PUFF INH BID, (Reported) Zinc (Zinc) 50 Mg Tablet, 50 MG PO DAILY, (Reported) Scheduled PRN Acetaminophen (Acetaminophen) 500 Mg Tablet, 1,000 MG PO Q6H PRN for BACK PAIN, (Reported) Albuterol Sulfate (Albuterol Sulfate Hfa) 8.5 Gm Hfa.aer.ad, 2 PUFF INH Q6H PRN for SHORTNESS OF BREATH, (Reported) Quinine Sulfate (Quinine Sulfate) 324 Mg Capsule, 324 MG PO DAILY PRN for LEG CRAMPS, (Reported) Allergies Coded Allergies: Sulfa (Sulfonamide Antibiotics) (Verified Allergy, Intermediate, hives and muscle issues, 07/19/20) patient says sulpher biaxin severe hives requires iv benedryl, levequin muscle issue acetaminophen (Verified Allergy, Mild, NAME BRAND CONTAINS GLUTEN, 11/26/20) clarithromycin (Verified Allergy, Mild, FULL BODY RASH, 11/26/20) levofloxacin (Verified Allergy, Mild, FULL BODY RASH, 11/26/20) bee venom protein (honey bee) (Verified Allergy, Unknown, 06/25/20) gluten (Verified Allergy, Unknown, 06/25/20) BRANDT HERNANDEZ MD Nov 27, 2020 08:21
[2020-11-27] MEDS ORDERED: ENOXAPARIN 40MG/0.4ML SYRINGE (J1650 PER 10MG) SC SCH (09:00)
[2020-11-27] MEDS ORDERED: BENA25TA5 PO (09:45)
[2020-11-27] MEDS: methylPREDNISolone 125MG 2ML VIAL IV SCH (11:36)
== END 2020-11-27 12:30 | disposition home or self-care (01) ==
LOC: INTOOBSV 19:38 → M 4MAIN 19:38
PROVIDERS: ADMIT Internal Medicine; ATTEND Internal Medicine
DX: U07.1 COVID-19 (principal); R22.0 Localized swelling, mass and lump, head; R23.2 Flushing; T37.5X5A Adverse effect of antiviral drugs, initial encounter; J45.909 Unspecified asthma, uncomplicated; K90.0 Celiac disease; J38.3 Other diseases of vocal cords; Z79.899 Other long term (current) drug therapy; Z79.51 Long term (current) use of inhaled steroids; Z88.2 Allergy status to sulfonamides; Z88.6 Allergy status to analgesic agent; Z88.1 Allergy status to other antibiotic agents; Z91.030 Bee allergy status; Z91.02 Food additives allergy status
CPT/HCPCS: 36415; 80048; 83735; 85025; 96374; 96375; J1200; J2930; M0243

== ENCOUNTER → 2020-12-07 | Outpatient (REF) | payer OTHER ==
[~2020-12-07] MED LIST changes: +BENA25TA5 PO; +D31000TA2 PO; +QUIN324C2 PO; +VITA-158 PO; +ZINC1TAB2 PO
[2020-12-07 16:05] LABS: BASO # 0.1 10^3/uL (0.0-0.2); BASO % 0.6 % (0.0-1.0); EOS # 0.1 10^3/uL (0.0-0.5); EOS % 0.9 % (0.0-3.0); HEMATOCRIT 45.6 % (36.0-47.0); HEMOGLOBIN 14.2 g/dl (12.0-15.5); LYMPH # 1.4 10^3/uL (1.5-5.0); LYMPH % 16.4 % (24.0-44.0); MEAN CORPUSCULAR HEMOGLOBIN 25.1 pg (27.0-33.0); MEAN CORPUSCULAR HGB CONC 31.1 g/dl (32.0-36.5); MEAN CORPUSCULAR VOLUME 80.7 fl (80.0-96.0); MONO # 0.4 10^3/uL (0.0-0.8); MONO % 5.2 % (2.0-8.0); NEUTROPHILS # 6.3 10^3/uL (1.5-8.5); NEUTROPHILS % 76.4 % (36.0-66.0); PLATELET COUNT, AUTOMATED 377 10^3/uL (150-450); RED BLOOD COUNT 5.65 10^6/uL (4.00-5.40); WHITE BLOOD COUNT 8.2 10^3/uL (4.0-10.0)
[2020-12-07 16:30] LABS: ALBUMIN 4.4 GM/DL (3.2-5.2); ALT/SGPT 23 U/L (12-78); BILIRUBIN,TOTAL 0.5 MG/DL (0.2-1.0); BLOOD UREA NITROGEN 6 MG/DL (7-18); CALCIUM LEVEL 10.1 MG/DL (8.5-10.1); CARBON DIOXIDE LEVEL 27 MEQ/L (21-32); CHLORIDE LEVEL 107 MEQ/L (98-107); CREATININE FOR GFR 0.75 MG/DL (0.55-1.30); GLOMERULAR FILTRATION RATE > 60.0 (>58); GLUCOSE, FASTING 89 MG/DL (70-100); POTASSIUM SERUM 4.4 MEQ/L (3.5-5.1); SODIUM LEVEL 142 MEQ/L (136-145); TOTAL PROTEIN 8.1 GM/DL (6.4-8.2)
== END ==
LOC: M SFHCCLAY 10:51
PROVIDERS: ATTEND Family Medicine
DX: M79.89 Other specified soft tissue disorders (principal)
CPT/HCPCS: 80053; 85025; G0463

== ENCOUNTER → 2021-02-02 | Outpatient (REF) | payer OTHER ==
[2021-02-03 11:48] LABS: HEMOGLOBIN 13.6 g/dl (12.0-15.5); MEAN CORPUSCULAR HEMOGLOBIN 27.1 pg (27.0-33.0); MEAN CORPUSCULAR HGB CONC 32.4 g/dl (32.0-36.5); MEAN CORPUSCULAR VOLUME 83.8 fl (80.0-96.0); PLATELET COUNT, AUTOMATED 372 10^3/uL (150-450); RED BLOOD COUNT 5.01 10^6/uL (4.00-5.40); WHITE BLOOD COUNT 8.4 10^3/uL (4.0-10.0)
[2021-02-03 13:13] LABS: % LABILE ALKALINE PHOSPHATASE 65.7 %
== END ==
LOC: M SFHCCLAY 14:23
PROVIDERS: ATTEND Family Medicine
DX: R21 Rash and other nonspecific skin eruption (principal); R74.8 Abnormal levels of other serum enzymes; T50.905D Adverse effect of unspecified drugs, medicaments and biological substances, subsequent encounter
CPT/HCPCS: 84078; 85027; G0463

== ENCOUNTER → 2021-04-01 | Outpatient (REF) | payer OTHER ==
[2021-04-01 17:38] LABS: % LABILE ALKALINE PHOSPHATASE 56.3 %
[2021-04-02 11:02] LABS: TOTAL 25(OH) VITAMIN D 29.8 NG/ML (30.0-100.0)
== END ==
LOC: M SFHCCLAY 10:16
PROVIDERS: ATTEND Family Medicine
DX: R74.8 Abnormal levels of other serum enzymes (principal); Z13.21 Encounter for screening for nutritional disorder
CPT/HCPCS: 82306; 84078; G0463

== ENCOUNTER → 2021-06-30 | Outpatient (REF) | payer OTHER ==
[~2021-06-30] MED LIST changes: -D31000TA2 PO; +VITA100093 PO
[2021-06-30 15:48] LABS: BASO # 0.1 10^3/uL (0.0-0.2); BASO % 0.7 % (0.0-1.0); EOS # 0.1 10^3/uL (0.0-0.5); EOS % 1.4 % (0.0-3.0); HEMATOCRIT 42.8 % (36.0-47.0); HEMOGLOBIN 14.2 g/dl (12.0-15.5); LYMPH # 1.5 10^3/uL (1.5-5.0); LYMPH % 20.8 % (24.0-44.0); MEAN CORPUSCULAR HEMOGLOBIN 27.9 pg (27.0-33.0); MEAN CORPUSCULAR HGB CONC 33.2 g/dl (32.0-36.5); MEAN CORPUSCULAR VOLUME 84.1 fl (80.0-96.0); MONO # 0.4 10^3/uL (0.0-0.8); MONO % 5.4 % (2.0-8.0); NEUTROPHILS # 5.2 10^3/uL (1.5-8.5); NEUTROPHILS % 71.4 % (36.0-66.0); PLATELET COUNT, AUTOMATED 318 10^3/uL (150-450); RED BLOOD COUNT 5.09 10^6/uL (4.00-5.40); WHITE BLOOD COUNT 7.3 10^3/uL (4.0-10.0)
[2021-06-30 16:13] LABS: BLOOD UREA NITROGEN 7 MG/DL (7-18); CALCIUM LEVEL 9.7 MG/DL (8.5-10.1); CARBON DIOXIDE LEVEL 27 MEQ/L (21-32); CHLORIDE LEVEL 110 MEQ/L (98-107); CREATININE FOR GFR 0.61 MG/DL (0.55-1.30); GLOMERULAR FILTRATION RATE > 60.0 (>58); GLUCOSE, FASTING 86 MG/DL (70-100); POTASSIUM SERUM 4.1 MEQ/L (3.5-5.1); SODIUM LEVEL 142 MEQ/L (136-145)
[2021-06-30 16:14] LABS: ALBUMIN 4.2 GM/DL (3.2-5.2); ALT/SGPT 25 U/L (12-78); BILIRUBIN,TOTAL 0.5 MG/DL (0.2-1.0); C REACTIVE PROTEIN QUANTITATIV 0.75 MG/DL (0.00-0.30); TOTAL PROTEIN 7.5 GM/DL (6.4-8.2)
[2021-06-30 18:11] LABS: ERYTHROCYTE SEDIMENTATION RATE 4 mm/hr (0-20)
== END ==
LOC: M SFHCCLAY 11:13
PROVIDERS: ATTEND Family Medicine
DX: K13.79 Other lesions of oral mucosa (principal)

== ENCOUNTER → 2021-08-09 | Outpatient (REF) | payer OTHER | LOC: M SFHCCLAY 11:31 | PROVIDERS: ATTEND Physician Assistant | DX: R10.2 Pelvic and perineal pain (principal) ==

== ENCOUNTER → 2022-02-10 | Outpatient (REF) | payer OTHER ==
[2022-02-10 18:29] LABS: HEMATOCRIT 44.1 % (36.0-47.0); HEMOGLOBIN 14.4 g/dl (12.0-15.5); MEAN CORPUSCULAR HEMOGLOBIN 28.5 pg (27.0-33.0); MEAN CORPUSCULAR HGB CONC 32.7 g/dl (32.0-36.5); MEAN CORPUSCULAR VOLUME 87.2 fl (80.0-96.0); PLATELET COUNT, AUTOMATED 312 10^3/uL (150-450); RED BLOOD COUNT 5.06 10^6/uL (4.00-5.40); WHITE BLOOD COUNT 6.8 10^3/uL (4.0-10.0)
[2022-02-10 18:58] LABS: RHEUMATOID FACTOR QUANT 20.5 IU/ML (<14)
[2022-02-10 19:02] LABS: ALBUMIN 4.2 G/DL (3.2-5.2); ALKALINE PHOSPHATASE 119 U/L (46-116); ALT/SGPT 20 U/L (7.0-40); AST/SGOT 17 U/L (<34); BILIRUBIN,TOTAL 0.7 MG/DL (0.3-1.2); BLOOD UREA NITROGEN 10 MG/DL (9-23); CALCIUM LEVEL 9.3 MG/DL (8.5-10.1); CARBON DIOXIDE LEVEL 28 MMOL/L (20-31); CHLORIDE LEVEL 105 MMOL/L (98-107); CHOLESTEROL LEVEL 209 MG/DL (<200); CHOLESTEROL RISK RATIO 2.44 (<5); CREATININE FOR GFR 0.66 MG/DL (0.55-1.30); GLOMERULAR FILTRATION RATE > 60.0 (>58); GLUCOSE, FASTING 89 MG/DL (60-100); HDL CHOLESTEROL 85.5 MG/DL (>40); LDL CHOLESTEROL 109.1 MG/DL (<100); NON-HDL-C 124 MG/DL; POTASSIUM SERUM 4.6 MMOL/L (3.5-5.1); SODIUM LEVEL 139 MMOL/L (136-145); TOTAL 25(OH) VITAMIN D 36.4 NG/ML (20.0-100.0); TOTAL PROTEIN 7.3 G/DL (5.7-8.2); TRIGLYCERIDES LEVEL 72 MG/DL (<150)
[2022-02-10 20:22] LABS: ERYTHROCYTE SEDIMENTATION RATE 3 mm/hr (0-20)
== END ==
LOC: M SFHCCLAY 10:18
PROVIDERS: ATTEND Nurse Practitioner Family
DX: M06.9 Rheumatoid arthritis, unspecified (principal); Z13.220 Encounter for screening for lipoid disorders; E55.9 Vitamin D deficiency, unspecified

== ENCOUNTER → 2022-03-17 | Outpatient (CLI) | payer OTHER ==
[~2022-03-17] MED LIST changes: -MEDR10TA PO; +MEDR10TA9 PO
== END ==
LOC: M RAD 14:28
PROVIDERS: ATTEND Nurse Practitioner Family
DX: R10.2 Pelvic and perineal pain (principal)

== ENCOUNTER → 2022-05-04 | Outpatient (REF) | payer OTHER ==
[2022-05-04 17:31] LABS: HEMATOCRIT 46.1 % (36.0-47.0); HEMOGLOBIN 15.2 g/dl (12.0-15.5); MEAN CORPUSCULAR HEMOGLOBIN 28.7 pg (27.0-33.0); MEAN CORPUSCULAR VOLUME 87.1 fl (80.0-96.0); PLATELET COUNT, AUTOMATED 328 10^3/uL (150-450); RED BLOOD COUNT 5.29 10^6/uL (4.00-5.40); WHITE BLOOD COUNT 6.4 10^3/uL (4.0-10.0)
[2022-05-04 17:52] LABS: ALBUMIN 4.3 G/DL (3.2-5.2); ALKALINE PHOSPHATASE 101 U/L (46-116); ALT/SGPT 18 U/L (7.0-40); AST/SGOT 13 U/L (<34); BILIRUBIN,TOTAL 1.1 MG/DL (0.3-1.2); BLOOD UREA NITROGEN 9 MG/DL (9-23); CALCIUM LEVEL 10.1 MG/DL (8.5-10.1); CARBON DIOXIDE LEVEL 27 MMOL/L (20-31); CHLORIDE LEVEL 104 MMOL/L (98-107); CREATININE FOR GFR 0.74 MG/DL (0.55-1.30); GLOMERULAR FILTRATION RATE > 60.0 (>58); GLUCOSE, FASTING 87 MG/DL (60-100); POTASSIUM SERUM 5.2 MMOL/L (3.5-5.1); SODIUM LEVEL 139 MMOL/L (136-145); TOTAL PROTEIN 7.4 G/DL (5.7-8.2)
== END ==
LOC: M SFHCCLAY 10:59
PROVIDERS: ATTEND Nurse Practitioner Family
DX: R19.7 Diarrhea, unspecified (principal); R10.13 Epigastric pain
CPT/HCPCS: 80053; 85027; G0463

== ENCOUNTER → 2022-08-12 | Outpatient (REF) | payer OTHER ==
[2022-08-12 20:47] LABS: ALBUMIN 4.3 G/DL (3.2-5.2); ALKALINE PHOSPHATASE 118 U/L (46-116); ALT/SGPT 20 U/L (7.0-40); AST/SGOT 11 U/L (<34); BILIRUBIN,TOTAL 0.6 MG/DL (0.3-1.2); BLOOD UREA NITROGEN 9 MG/DL (9-23); CALCIUM LEVEL 9.5 MG/DL (8.5-10.1); CARBON DIOXIDE LEVEL 27 MMOL/L (20-31); CHLORIDE LEVEL 105 MMOL/L (98-107); CREATININE FOR GFR 0.68 MG/DL (0.55-1.30); GLOMERULAR FILTRATION RATE > 60.0 (>58); GLUCOSE, FASTING 79 MG/DL (60-100); POTASSIUM SERUM 4.2 MMOL/L (3.5-5.1); SODIUM LEVEL 141 MMOL/L (136-145); TOTAL PROTEIN 7.4 G/DL (5.7-8.2)
[2022-08-12 20:51] LABS: FREE T4 1.03 NG/DL (0.89-1.76); THYROID STIMULATING HORMONE 2.745 uIU/ML (0.55-4.78)
== END ==
LOC: M SFHCCLAY 11:17
PROVIDERS: ATTEND Nurse Practitioner Family
DX: M06.9 Rheumatoid arthritis, unspecified (principal)

== ENCOUNTER → 2022-08-29 | Outpatient (CLI) | payer OTHER ==
[~2022-08-29] MED LIST changes: +GASTROGRAFIN SOLUTION 30ML As Ordered ONE; +ISOVUE-370 76% 100ML VIAL As Ordered ONE
== END ==
LOC: M RAD 13:28
PROVIDERS: ATTEND Nurse Practitioner Family
DX: R19.7 Diarrhea, unspecified (principal); R10.13 Epigastric pain
CPT/HCPCS: 74177; Q9963; Q9967

== ENCOUNTER → 2022-11-01 | Outpatient (REF) | payer OTHER ==
[~2022-11-01] MED LIST changes: -GASTROGRAFIN SOLUTION 30ML As Ordered ONE; -ISOVUE-370 76% 100ML VIAL As Ordered ONE
[2022-11-01 18:51] LABS: ALBUMIN 4.2 G/DL (3.2-5.2); ALKALINE PHOSPHATASE 128 U/L (46-116); ALT/SGPT 19 U/L (7.0-40); AST/SGOT 11 U/L (<34); BILIRUBIN,TOTAL 0.8 MG/DL (0.3-1.2); BLOOD UREA NITROGEN 9 MG/DL (9-23); CALCIUM LEVEL 10.1 MG/DL (8.5-10.1); CARBON DIOXIDE LEVEL 26 MMOL/L (20-31); CHLORIDE LEVEL 104 MMOL/L (98-107); CREATININE FOR GFR 0.67 MG/DL (0.55-1.30); GLOMERULAR FILTRATION RATE > 60.0 (>58); GLUCOSE, FASTING 89 MG/DL (60-100); POTASSIUM SERUM 4.3 MMOL/L (3.5-5.1); SODIUM LEVEL 141 MMOL/L (136-145); TOTAL PROTEIN 7.5 G/DL (5.7-8.2)
== END ==
LOC: M SFHCCLAY 10:34
PROVIDERS: ATTEND Physician Assistant Medical
DX: R52 Pain, unspecified (principal); M06.9 Rheumatoid arthritis, unspecified
CPT/HCPCS: 80053; 85652; 86140; 86618; G0463

== ENCOUNTER → 2022-11-03 | Outpatient (CLI) | payer OTHER | LOC: M CLY 12:32 | PROVIDERS: ATTEND Physician Assistant Medical | DX: M25.571 Pain in right ankle and joints of right foot (principal) ==

== ENCOUNTER → 2022-12-02 | Outpatient (REF) | payer OTHER | LOC: M SFHCDERM 11:05 | PROVIDERS: ATTEND Physician Assistant | DX: D22.4 Melanocytic nevi of scalp and neck (principal) ==

== ENCOUNTER → 2023-01-06 | Outpatient (CLI) | payer OTHER ==
[~2023-01-06] MED LIST changes: +PROHANCE 279.3MG/ML 15ML VIAL ONE
== END ==
LOC: M PLAIMG 14:39
PROVIDERS: ATTEND Nurse Practitioner Family
DX: Z12.39 Encounter for other screening for malignant neoplasm of breast (principal); Z80.3 Family history of malignant neoplasm of breast
CPT/HCPCS: A9576; C8908

== ENCOUNTER → 2023-08-04 | Outpatient (REF) | payer OTHER ==
[~2023-08-04] MED LIST changes: -PROHANCE 279.3MG/ML 15ML VIAL ONE
[2023-08-04 18:15] LABS: BASO # 0.1 10^3/uL (0.0-0.2); BASO % 0.9 % (0.0-1.0); EOS # 0.1 10^3/uL (0.0-0.5); EOS % 1.9 % (0.0-3.0); HEMOGLOBIN 14.8 g/dl (12.0-15.5); LYMPH # 1.3 10^3/uL (1.5-5.0); LYMPH % 19.2 % (24.0-44.0); MEAN CORPUSCULAR HGB CONC 33.6 g/dl (32.0-36.5); MEAN CORPUSCULAR VOLUME 86.1 fl (80.0-96.0); MONO # 0.4 10^3/uL (0.0-0.8); MONO % 5.7 % (2.0-8.0); NEUTROPHILS # 4.8 10^3/uL (1.5-8.5); PLATELET COUNT, AUTOMATED 346 10^3/uL (150-450); RED BLOOD COUNT 5.11 10^6/uL (4.00-5.40); WHITE BLOOD COUNT 6.7 10^3/uL (4.0-10.0)
[2023-08-04 18:41] LABS: ALBUMIN 4.2 G/DL (3.2-5.2); ALKALINE PHOSPHATASE 127 U/L (46-116); ALT/SGPT 21 U/L (7.0-40); AST/SGOT 11 U/L (<34); BILIRUBIN,TOTAL 0.6 MG/DL (0.3-1.2); BLOOD UREA NITROGEN 10 MG/DL (9-23); CALCIUM LEVEL 9.9 MG/DL (8.5-10.1); CARBON DIOXIDE LEVEL 27 MMOL/L (20-31); CHLORIDE LEVEL 105 MMOL/L (98-107); CREATININE FOR GFR 0.68 MG/DL (0.55-1.30); GLOMERULAR FILTRATION RATE > 60.0 (>51); GLUCOSE, FASTING 72 MG/DL (60-100); MAGNESIUM LEVEL 2.1 MG/DL (1.8-2.4); POTASSIUM SERUM 3.8 MMOL/L (3.5-5.1); SODIUM LEVEL 138 MMOL/L (136-145); TOTAL PROTEIN 7.2 G/DL (5.7-8.2)
[2023-08-04 18:42] LABS: FREE T4 1.09 NG/DL (0.89-1.76)
[2023-08-04 18:43] LABS: THYROID STIMULATING HORMONE 2.241 uIU/ML (0.55-4.78)
== END ==
LOC: M SFHCCLAY 13:51
PROVIDERS: ATTEND Nurse Practitioner Family
DX: R00.2 Palpitations (principal)

== ENCOUNTER → 2023-08-25 | Outpatient (CLI) | payer OTHER | LOC: M CLY 09:55 | PROVIDERS: ATTEND Nurse Practitioner Family | DX: M25.551 Pain in right hip (principal) ==

== ENCOUNTER → 2023-10-04 | Outpatient (CLI) | payer OTHER | LOC: M SLEEP HO 11:07 | PROVIDERS: ATTEND Nurse Practitioner Family | DX: R06.83 Snoring (principal); R53.83 Other fatigue ==

== ENCOUNTER → 2024-04-24 | Outpatient (REF) | payer OTHER ==
[2024-04-24 17:25] LABS: BASO # 0.1 10^3/uL (0.0-0.2); BASO % 0.6 % (0.0-1.0); EOS # 0.1 10^3/uL (0.0-0.5); EOS % 1.3 % (0.0-3.0); HEMATOCRIT 46.3 % (36.0-47.0); HEMOGLOBIN 15.6 g/dl (12.0-15.5); LYMPH # 1.6 10^3/uL (1.5-5.0); LYMPH % 18.2 % (24.0-44.0); MEAN CORPUSCULAR HEMOGLOBIN 28.9 pg (27.0-33.0); MEAN CORPUSCULAR HGB CONC 33.7 g/dl (32.0-36.5); MEAN CORPUSCULAR VOLUME 85.7 fl (80.0-96.0); MONO # 0.4 10^3/uL (0.0-0.8); MONO % 4.5 % (2.0-8.0); NEUTROPHILS # 6.5 10^3/uL (1.5-8.5); NEUTROPHILS % 75.1 % (36.0-66.0); PLATELET COUNT, AUTOMATED 341 10^3/uL (150-450); WHITE BLOOD COUNT 8.7 10^3/uL (4.0-10.0)
[2024-04-24 17:29] LABS: C REACTIVE PROTEIN QUANTITATIV 0.95 MG/DL (<1.0); RHEUMATOID FACTOR QUANT 24.2 IU/ML (<14)
[2024-04-24 17:30] LABS: ALBUMIN 4.2 G/DL (3.2-5.2); ALKALINE PHOSPHATASE 138 U/L (35-104); ALT/SGPT 25 U/L (7.0-40); AST/SGOT 13 U/L (<34); BILIRUBIN,TOTAL 0.6 MG/DL (0.3-1.2); BLOOD UREA NITROGEN 11 MG/DL (9-23); CALCIUM LEVEL 9.7 MG/DL (8.5-10.1); CARBON DIOXIDE LEVEL 27 MMOL/L (20-31); CHLORIDE LEVEL 106 MMOL/L (98-107); CHOLESTEROL LEVEL 258 MG/DL (<200); CREATININE FOR GFR 0.66 MG/DL (0.55-1.30); GLOMERULAR FILTRATION RATE > 60.0 (>51); GLUCOSE, FASTING 89 MG/DL (60-100); HDL CHOLESTEROL 95.4 MG/DL (>40); LDL CHOLESTEROL 144.2 MG/DL (<100); NON-HDL-C 162.6 MG/DL; POTASSIUM SERUM 4.8 MMOL/L (3.5-5.1); SODIUM LEVEL 141 MMOL/L (136-145); TOTAL PROTEIN 7.6 G/DL (5.7-8.2); TRIGLYCERIDES LEVEL 92 MG/DL (<150)
[2024-04-24 17:33] LABS: FREE T4 1.15 NG/DL (0.89-1.76); THYROID STIMULATING HORMONE 2.362 uIU/ML (0.55-4.78)
[2024-04-24 17:35] LABS: ERYTHROCYTE SEDIMENTATION RATE 7 mm/hr (0-30)
[2024-04-24 17:39] LABS: HEMOGLOBIN A1c 4.9 % (4.0-6.0)
== END ==
LOC: M SFHCCLAY 10:41
PROVIDERS: ATTEND Nurse Practitioner Family
DX: Z00.00 Encounter for general adult medical examination without abnormal findings (principal); M06.9 Rheumatoid arthritis, unspecified; R53.83 Other fatigue; J45.20 Mild intermittent asthma, uncomplicated

== ENCOUNTER → 2024-05-01 | Outpatient (CLI) | payer OTHER | LOC: M CLY 11:40 | PROVIDERS: ATTEND Nurse Practitioner Family | DX: M25.571 Pain in right ankle and joints of right foot (principal) ==

== ENCOUNTER → 2024-05-14 | Outpatient (CLI) | payer OTHER | LOC: M RAD 07:24 | PROVIDERS: ATTEND Nurse Practitioner Family | DX: K76.0 Fatty (change of) liver, not elsewhere classified (principal); K80.20 Calculus of gallbladder without cholecystitis without obstruction; K76.89 Other specified diseases of liver ==

== ENCOUNTER → 2024-06-11 | Outpatient (REF) | payer OTHER | LOC: M SFHCCLAY 09:55 | PROVIDERS: ATTEND Physician Assistant | DX: R30.0 Dysuria (principal) ==

== ENCOUNTER → 2024-12-30 | Outpatient (CLI) | payer OTHER ==
[~2024-12-30] MED LIST changes: +PROHANCE 279.3MG/ML 15ML VIAL ONE
== END ==
LOC: M PLAIMG 10:45
PROVIDERS: ATTEND Surgery
DX: Z12.31 Encounter for screening mammogram for malignant neoplasm of breast (principal)
CPT/HCPCS: A9576; C8908